=== PATIENT | female | born 2000 | race Caucasian/White ===

== ENCOUNTER 2018-09-16 23:55 | Emergency (ER) | payer BC, SELFPAY ==
[2018-09-16 23:59] VITALS: BP 119/58; PULSE 89; RESP 18; TEMP 36.7; O2SAT 97
--- NOTE | 2018-09-17 00:19 | ED.GENADUL_ITS ---
Discharge Plan Disposition Patient Disposition: HOME Condition: Good Discharge Details Chief Complaint: Nausea/Vomit/Diar Clinical Impression: Nausea, vomiting and diarrhea Primary Care Provider: René Rizvi ED Provider: Jimmy Ferrer Home Meds and New Rx's Prescriptions: No Action No Known Home Meds RF: 0 Discharge Instructions Instructions: Acute Nausea and Vomiting (ED) Additional Instructions: You may use the Zofran in the morning if needed. Would stick with clear/full liquids for the day. Advance to bland diet at night if feeling better. Follow- up with primary care next week if continued issues. Return to ED for fever, persistent vomiting, bloody diarrhea, worsening/persistent abdominal pain. Referrals: René Rizvi MD [Primary Care Provider] - Medical Decision Making Patient presenting with complaint of vomiting and diarrhea. Diarrhea is described as loose stool not watery. There is no hematemesis or hematochezia. Her vital signs are normal. Her abdomen is completely benign to palpation. She still feels nauseated. test is negative. Will give Zofran ODT and try p.o. challenge. Patient feeling better with a Zofran ODT. Tolerating clears. Will discharge home with a Zofran ODT for morning use if needed. Follow-up with primary care next week if continued problems. Return to ED for fever, persistent vomiting, worsening/persistent abdominal pain. HPI General Mode of arrival: ambulatory . Date/Time Provider Initiated Documentation: 09/17/18 00:17 . Limitations to Documentation: no limitations . Information obtained by: patient . HPI Narrative: Patient presents to ED with complaint of vomiting and diarrhea. Patient reports for the last week she has had nausea and loose stool. She has had intermittent sharp abdominal pain. Yesterday and today she thought she was better without having any symptoms. Tonight after eating dinner, she developed recurrent nausea and now has vomiting with it. She has redeveloped loose stool and abdominal cramping. She has had no fever or chills that she is aware of. She has no urinary symptoms. She has no back pain. She is here mostly because of the vomiting. Related Data Home Medications Medication Instructions Recorded Confirmed Unknown [No Known Home Meds] 09/17/18 09/17/18 Allergies Allergy/AdvReac Type Severity Reaction Status Date / Time No Known Allergies Allergy Unverified 09/17/18 00:03 General Stated Complaint: Nausea/Vomit/Diar KRUPA: 3 Review of Systems Review of Systems As documented in HPI otherwise negative as below. Const: no fever, chills, weakness Resp: no cough, SOB, pleuritic pain CV: no CP, diaphoresis, edema, syncope GI: positive for abdominal pain, nausea, vomiting, diarrhea Neuro: no headache, numbness, focal weakness, confusion PFSH Medical History Acne (Chronic) Family History Mother No problems noted. Father No problems noted. Grandparent Heart disease Cancer Social History Smoking/Tobacco Use Status: Current every day Tobacco Type: cigarettes Tobacco: How many years used: 1 Alcohol Intake: current Alcohol Intake frequency: holidays/special occasions only Substance use type: does not use Do you feel safe at home: Yes Do you feel safe in your relationship?: Yes Exam Narrative Exam Narrative: 1. Const: WDWN female in NAD. 2. Eyes: No conjunctival injection or scleral icterus. 3. ENT: NC/AT. No facial swelling or tenderness. Mucous membranes moist. 4. Neck: Supple without adenopathy. Trachea midline. 5. CVS: +S1/S2, No murmurs or gallops. 6. RESP: Unlabored respiratory effort. Clear to auscultation bilaterally. No wheezes rales or rhonchi 7. GI: Soft, NT/ND, No hepatosplenomegaly. No guarding or rebound. 8. Neuro: A&O x3. production bow maker II-XII grossly intact. Sensation grossly intact, no focal neurologic deficits. Course Vital Signs Temperature 98.1 F 09/16/18 23:59 Pulse 89 09/16/18 23:59 Respiratory Rate 18 09/16/18 23:59 Blood Pressure 119/58 L 09/16/18 23:59 Pulse Oximetry 97 09/16/18 23:59 Temperature 98.1 F 09/16/18 23:59 Temperature Source Skin 09/16/18 23:59 Pulse 89 09/16/18 23:59 Respiratory Rate 18 09/16/18 23:59 Respiratory Effort Non-Labored 09/17/18 00:02 Blood Pressure 119/58 L 09/16/18 23:59 Pulse Oximetry 97 09/16/18 23:59 Oxygen Delivery Method Room Air 09/16/18 23:59 Oxygen Flow Rate 0 09/16/18 23:59 Pain Level 6 09/16/18 23:59
[2018-09-17] MEDS: Ondansetron O.D.T. 4 MG TABEF PO ×2 (00:31→01:35)
[2018-09-17 01:32] VITALS: BP 108/57; PULSE 86; RESP 16; O2SAT 99
== END 2018-09-17 01:37 | disposition home or self-care (01) ==
PROVIDERS: Emergency Provider Emergency Medicine; PCP Pediatrics
DX: R11.2 Nausea with vomiting, unspecified (principal); R19.7 Diarrhea, unspecified
CPT/HCPCS: 81025; 99283